=== PATIENT | male | born 1960 | race Caucasian/White ===

== ENCOUNTER 2016-07-09 09:20 | Emergency (ER) | payer SELFPAY ==
[~2016-07-09] VITALS: Ht 177.8 cm; Wt 79.4 kg
[~2016-07-09 09:20] MED LIST: ALBUTEROL0.09 MG/A2 INH; ANAPROX DS550 MG PO; ASPI-COR81 M1 PO; ATARAX25 MG PO; B12100 MC1 PO; BLOOD PRESSURE; CEPHALEXIN500 M1 PO; INDOMETHACIN50 MG PO; LIDEX 0.05% CRE15 GM T; MOTRIN800 MG PO; Motrin,Rufen800 MG PO; NAPROSYN250 MG PO; NKHM; NORCO 325 MG-51 TAB PO; PHENERGAN25 M1 PO; PREDNISONE10 MG PO; PREDNISONE20 MG PO; ROBITUSSIN DM120 ML PO; ULTRAM50 MG PO; VENTOLIN H0.09 MG/AC INH; VIBRAMYCIN100 MG PO
[2016-07-09 09:35] VITALS: BP 126/75
== END 2016-07-09 10:15 | disposition home or self-care (01) ==
LOC: ED 09:20
DX: S46.911A Strain of unspecified muscle, fascia and tendon at shoulder and upper arm level, right arm, initial encounter (principal); M17.10 Unilateral primary osteoarthritis, unspecified knee; F17.200 Nicotine dependence, unspecified, uncomplicated; Z87.11 Personal history of peptic ulcer disease; X58.XXXA Exposure to other specified factors, initial encounter; Y93.89 Activity, other specified; Y92.9 Unspecified place or not applicable; Y99.9 Unspecified external cause status

== ENCOUNTER 2016-12-08 09:56 | Emergency (ER) | payer SELFPAY ==
[~2016-12-08] VITALS: Ht 172.7 cm; Wt 81.6 kg
[2016-12-08 10:03] VITALS: BP 132/86
[2016-12-08] MEDS ORDERED: MEDROL DOSEPAK4 MG PO (11:01)
[2016-12-08] MEDS ORDERED: CYCLOBENZAPRINE10 MG PO (11:01)
[2016-12-08] MEDS ORDERED: NORCO 5-325 TA1 EACH PO (11:01)
[2016-12-08] MEDS ORDERED: NAPROSYN500 MG PO (11:01)
== END 2016-12-08 11:25 | disposition home or self-care (01) ==
LOC: ED 09:56
DX: S39.012A Strain of muscle, fascia and tendon of lower back, initial encounter (principal); M25.512 Pain in left shoulder; F17.200 Nicotine dependence, unspecified, uncomplicated; X50.0XXA Overexertion from strenuous movement or load, initial encounter; Y93.89 Activity, other specified; Y92.69 Other specified industrial and construction area as the place of occurrence of the external cause; Y99.0 Civilian activity done for income or pay

== ENCOUNTER 2016-12-31 19:28 | Emergency (ER) | payer SELFPAY ==
[~2016-12-31] VITALS: Ht 172.7 cm; Wt 83.9 kg
[~2016-12-31 19:28] MED LIST changes: +CYCLOBENZAPRINE10 MG PO; +MEDROL DOSEPAK4 MG PO; +NAPROSYN500 MG PO; +NORCO 5-325 TA1 EACH PO
[2016-12-31 19:33] VITALS: BP 160/91
== END 2016-12-31 21:11 | disposition home or self-care (01) ==
LOC: ED 19:28
DX: M20.011 Mallet finger of right finger(s) (principal); F17.200 Nicotine dependence, unspecified, uncomplicated

== ENCOUNTER 2017-04-09 17:15 | Emergency (ER) | payer SELFPAY ==
[~2017-04-09] VITALS: Ht 172.7 cm; Wt 81.6 kg
[2017-04-09 17:55] VITALS: BP 141/92
== END 2017-04-09 18:45 | disposition home or self-care (01) ==
LOC: ED 17:15
DX: S63.501A Unspecified sprain of right wrist, initial encounter (principal); X50.9XXA Other and unspecified overexertion or strenuous movements or postures, initial encounter; X50.0XXA Overexertion from strenuous movement or load, initial encounter; Y93.89 Activity, other specified; Y92.89 Other specified places as the place of occurrence of the external cause; Y99.8 Other external cause status; F17.200 Nicotine dependence, unspecified, uncomplicated

== ENCOUNTER 2017-06-02 01:34 | Emergency (ER) | payer SELFPAY ==
[~2017-06-02] VITALS: Ht 172.7 cm; Wt 83.9 kg
[2017-06-02 01:38] VITALS: BP 146/87
[2017-06-02] MEDS ORDERED: CYCLOBENZAPRINE5 M3 PO (02:35)
[2017-06-02] MEDS ORDERED: PREDNISONE20 M1 PO (02:35)
[2017-06-02] MEDS ORDERED: Orphenadrine C100 MG PO (02:35)
== END 2017-06-02 02:52 | disposition home or self-care (01) ==
LOC: ED 01:34
DX: S39.012A Strain of muscle, fascia and tendon of lower back, initial encounter (principal); F17.200 Nicotine dependence, unspecified, uncomplicated; M17.10 Unilateral primary osteoarthritis, unspecified knee; Z98.890 Other specified postprocedural states; Z87.11 Personal history of peptic ulcer disease; Z98.84 Bariatric surgery status; X50.1XXA Overexertion from prolonged static or awkward postures, initial encounter; Y93.89 Activity, other specified; Y92.89 Other specified places as the place of occurrence of the external cause; Y99.9 Unspecified external cause status

== ENCOUNTER 2017-08-11 16:41 | Emergency (ER) | payer SELFPAY ==
[~2017-08-11] VITALS: Ht 172.7 cm; Wt 83.9 kg
[~2017-08-11 16:41] MED LIST changes: +CYCLOBENZAPRINE5 M3 PO; +Orphenadrine C100 MG PO; +PREDNISONE20 M1 PO
[2017-08-11 16:59] VITALS: BP 131/80
[2017-08-11] MEDS ORDERED: NAPROSYN500 MG PO (17:47)
[2017-08-11] MEDS ORDERED: CYCLOBENZAPRINE10 MG PO ×2 (17:47→17:49)
== END 2017-08-11 23:25 | disposition home or self-care (01) ==
LOC: ED 16:41
DX: S39.012A Strain of muscle, fascia and tendon of lower back, initial encounter (principal); M17.10 Unilateral primary osteoarthritis, unspecified knee; F17.200 Nicotine dependence, unspecified, uncomplicated; Z98.890 Other specified postprocedural states; X50.1XXA Overexertion from prolonged static or awkward postures, initial encounter; Y93.89 Activity, other specified; Y92.69 Other specified industrial and construction area as the place of occurrence of the external cause; Y99.9 Unspecified external cause status

== ENCOUNTER 2017-09-21 10:46 | Emergency (ER) | payer SELFPAY ==
[~2017-09-21] VITALS: Wt 81.6 kg
[2017-09-21 10:47] VITALS: BP 128/84
[2017-09-21] MEDS ORDERED: PREDNISONE10 MG PO (10:54)
[2017-09-21] MEDS ORDERED: FLONASE ALLERG9.9 ML NAS (10:54)
[2017-09-21] MEDS ORDERED: CLARITIN10 MG PO (10:54)
[2017-09-21] MEDS ORDERED: ROBITUSSIN DM 105 ML PO (10:54)
== END 2017-09-21 11:54 | disposition home or self-care (01) ==
LOC: ED 10:46
DX: J20.9 Acute bronchitis, unspecified (principal); R03.0 Elevated blood-pressure reading, without diagnosis of hypertension; F17.200 Nicotine dependence, unspecified, uncomplicated; M17.10 Unilateral primary osteoarthritis, unspecified knee; Z98.890 Other specified postprocedural states; Z79.899 Other long term (current) drug therapy; Z87.11 Personal history of peptic ulcer disease

== ENCOUNTER 2017-10-06 12:37 | Emergency (ER) | payer SELFPAY ==
[~2017-10-06] VITALS: Ht 172.7 cm; Wt 79.4 kg
[~2017-10-06 12:37] MED LIST changes: +CLARITIN10 MG PO; +FLONASE ALLERG9.9 ML NAS; +ROBITUSSIN DM 105 ML PO
[2017-10-06 12:39] VITALS: BP 157/81
[2017-10-06] MEDS ORDERED: NAPROSYN500 MG PO (15:04)
== END 2017-10-06 15:04 | disposition home or self-care (01) ==
LOC: ED 12:37
DX: M77.9 Enthesopathy, unspecified (principal); F17.200 Nicotine dependence, unspecified, uncomplicated

== ENCOUNTER 2017-10-21 04:38 | Emergency (ER) | payer SELFPAY ==
[~2017-10-21] VITALS: Ht 170.1 cm; Wt 56.7 kg
[2017-10-21 04:39] VITALS: BP 130/57
[2017-10-21] MEDS ORDERED: IBU800 MG PO (04:53)
[2017-10-21] MEDS ORDERED: PREDNISONE50 MG PO (04:53)
== END 2017-10-21 05:07 | disposition home or self-care (01) ==
LOC: ED 04:38
DX: M79.89 Other specified soft tissue disorders (principal); M79.641 Pain in right hand; M79.642 Pain in left hand; F17.200 Nicotine dependence, unspecified, uncomplicated; M17.10 Unilateral primary osteoarthritis, unspecified knee; Z87.11 Personal history of peptic ulcer disease

== ENCOUNTER → 2017-11-04 | Outpatient (CLI) | payer SELFPAY ==
[~2017-11-04] MED LIST changes: +IBU800 MG PO; +PREDNISONE50 MG PO
== END | disposition home or self-care (01) ==
LOC: RESCLI 00:28
DX: I10 Essential (primary) hypertension (principal); F17.210 Nicotine dependence, cigarettes, uncomplicated; M79.89 Other specified soft tissue disorders; R06.09 Other forms of dyspnea; E66.3 Overweight; R00.1 Bradycardia, unspecified; Z71.6 Tobacco abuse counseling

== ENCOUNTER → 2017-11-10 | Outpatient (CLI) | payer SELFPAY | END | disposition home or self-care (01) | LOC: US 04:08 | DX: M79.89 Other specified soft tissue disorders (principal); R60.0 Localized edema; I10 Essential (primary) hypertension ==

== ENCOUNTER → 2017-11-11 | Outpatient (CLI) | payer SELFPAY | END | disposition home or self-care (01) | LOC: CARD 02:10 | DX: R00.1 Bradycardia, unspecified (principal); I10 Essential (primary) hypertension; R53.81 Other malaise; R06.09 Other forms of dyspnea; F17.200 Nicotine dependence, unspecified, uncomplicated ==

== ENCOUNTER → 2017-11-17 | Outpatient (CLI) | payer SELFPAY | END | disposition home or self-care (01) | LOC: LAB 03:53 → RESCLI 13:36 | DX: I10 Essential (primary) hypertension (principal) ==

== ENCOUNTER → 2017-11-30 | Outpatient (CLI) | payer SELFPAY ==
[2017-11-30 10:02] LABS: BASO # 0.1 10*3/uL (0.0-0.1); BASO % 0.8 % (0.0-1.0); EOS # 0.3 10*3/uL (0.0-0.4); EOS % 2.5 % (1.0-4.0); HEMATOCRIT 43.3 % (42.0-52.0); HEMOGLOBIN 13.8 g/dl (14.0-18.0); LYMPH # 2.3 10*3/uL (1.3-4.4); LYMPH % 23.4 % (27.0-41.0); MEAN CELL VOLUME 96.9 fl (80.0-94.0); MEAN CORPUSCULAR HGB 30.9 pg (27.0-31.0); MEAN CORPUSCULAR HGB CONC 31.9 g/dl (33.0-37.0); MEAN PLATELET VOLUME 11.1 fl (9.6-12.3); MONO # 0.7 10*3/uL (0.1-1.0); MONO % 6.6 % (3.0-9.0); NEUT # 6.6 10*3/uL (2.3-7.9); NEUT % 66.3 % (47.0-73.0); PLATELET COUNT AUTOMATED 265 10*3/uL (130-400); RED BLOOD COUNT 4.47 10*6/uL (4.50-5.90); RED CELL DISTRI WIDTH 14.4 % (0-14.5); WHITE BLOOD COUNT 9.9 10*3/uL (4.8-10.8)
[2017-11-30 10:32] LABS: BUN 25 mg/dl (7-24); CHLORIDE 105 mmol/L (98-107); CHOLESTEROL 166 mg/dL (<200); POTASSIUM 4.9 mmol/L (3.5-5.1); SODIUM 141 mmol/L (136-145); TRIGLYCERIDES 115 mg/dl (<150); VLDL CHOLESTEROL 23 mg/dL (6-40)
[2017-11-30 10:40] LABS: HDL CHOLESTEROL 39 mg/dl (40-60); LDL CHOLESTEROL 104 mg/dL (9-159)
== END | disposition home or self-care (01) ==
LOC: LAB 09:16
PROVIDERS: Internal Medicine
DX: I10 Essential (primary) hypertension (principal)

== ENCOUNTER → 2017-12-08 | Outpatient (CLI) | payer SELFPAY | END | disposition home or self-care (01) | LOC: CARD 00:31 → EDSTATUS 09:19 → CP 09:19 → CARD 10:13 → EDSTATUS 13:46 → CARD 12-12 03:34 | DX: R06.09 Other forms of dyspnea (principal); F17.200 Nicotine dependence, unspecified, uncomplicated ==

== ENCOUNTER 2017-12-27 17:54 | Emergency (ER) | payer SELFPAY ==
[~2017-12-27] VITALS: Ht 172.7 cm; Wt 79.4 kg
[2017-12-27 17:55] VITALS: BP 141/95
[2017-12-27] MEDS ORDERED: CYCLOBENZAPRINE5 M3 PO (18:45)
[2017-12-27] MEDS ORDERED: Motrin,Rufen800 MG PO (18:45)
== END 2017-12-27 18:56 | disposition home or self-care (01) ==
LOC: ED 17:54
DX: S39.012A Strain of muscle, fascia and tendon of lower back, initial encounter (principal); F17.200 Nicotine dependence, unspecified, uncomplicated; X50.1XXA Overexertion from prolonged static or awkward postures, initial encounter; Y93.89 Activity, other specified; Y92.89 Other specified places as the place of occurrence of the external cause; Y99.8 Other external cause status

== ENCOUNTER 2018-01-14 18:56 | Emergency (ER) | payer SELFPAY ==
[~2018-01-14] VITALS: Ht 172.7 cm; Wt 79.4 kg
[2018-01-14 18:59] VITALS: BP 137/91
[2018-01-14] MEDS ORDERED: INDOMETHACIN50 MG PO (20:14)
== END 2018-01-14 20:16 | disposition home or self-care (01) ==
LOC: ED 18:56
DX: M77.9 Enthesopathy, unspecified (principal); M25.532 Pain in left wrist; F17.200 Nicotine dependence, unspecified, uncomplicated; Z98.890 Other specified postprocedural states

== ENCOUNTER 2018-04-13 23:05 | Emergency (ER) | payer SELFPAY ==
[~2018-04-13] VITALS: Ht 172.7 cm; Wt 77.1 kg
[2018-04-13 23:07] VITALS: BP 154/94
[2018-04-13 23:32] LABS: BASO # 0.1 10*3/uL (0.0-0.1); BASO % 1.1 % (0.0-1.0); EOS # 0.3 10*3/uL (0.0-0.4); EOS % 4.3 % (1.0-4.0); HEMATOCRIT 42.3 % (42.0-52.0); HEMOGLOBIN 14.2 g/dl (14.0-18.0); LYMPH # 2.4 10*3/uL (1.3-4.4); LYMPH % 32.8 % (27.0-41.0); MEAN CORPUSCULAR HGB 31.6 pg (27.0-31.0); MEAN CORPUSCULAR HGB CONC 33.6 g/dl (33.0-37.0); MEAN PLATELET VOLUME 9.4 fl (9.6-12.3); MONO # 0.6 10*3/uL (0.1-1.0); MONO % 8.5 % (3.0-9.0); NEUT # 3.8 10*3/uL (2.3-7.9); PLATELET COUNT AUTOMATED 283 10*3/uL (130-400); RED CELL DISTRI WIDTH 13.7 % (0-14.5); WHITE BLOOD COUNT 7.2 10*3/uL (4.8-10.8)
[2018-04-13 23:42] LABS: ACT PARTIAL THROMBO TIME 29.8 SECONDS (20.8-31.5); INTERNATIONAL NORM RATIO 0.9 (2.0-3.5)
[2018-04-13 23:46] LABS: ALBUMIN 3.8 gm/dl (3.1-4.5); ALKALINE PHOSPHATASE 116 U/L (45-117); BUN 14 mg/dl (7-24); CHLORIDE 105 mmol/L (98-107); CREATININE 0.88 mg/dL (0.70-1.30); POTASSIUM 4.3 mmol/L (3.5-5.1); SGOT/AST 12 IU/L (3-35); SGPT/ALT 18 U/L (12-78); SODIUM 140 mmol/L (136-145); TOTAL PROTEIN 7.5 gm/dL (6.4-8.2)
== END 2018-04-14 01:02 | disposition home or self-care (01) ==
LOC: ED 23:05
PROVIDERS: Student in an Organized Health Care Education/Training Program
DX: K64.9 Unspecified hemorrhoids (principal); F17.200 Nicotine dependence, unspecified, uncomplicated; Z79.899 Other long term (current) drug therapy

== ENCOUNTER 2018-05-11 17:18 | Emergency (ER) | payer SELFPAY ==
[~2018-05-11] VITALS: Ht 172.7 cm; Wt 79.4 kg
[2018-05-11 17:19] VITALS: BP 134/98
[2018-05-11] MEDS ORDERED: TESSALON PERLE100 M1 PO (18:44)
[2018-05-11] MEDS ORDERED: PREDNISONE50 MG PO (18:44)
[2018-05-11] MEDS ORDERED: AMOXICILLIN500 M2 PO (18:44)
== END 2018-05-11 18:50 | disposition home or self-care (01) ==
LOC: ED 17:18
DX: J20.9 Acute bronchitis, unspecified (principal); F17.200 Nicotine dependence, unspecified, uncomplicated

== ENCOUNTER 2018-06-30 01:18 | Emergency (ER) | payer BC ==
[~2018-06-30] VITALS: Ht 172.7 cm; Wt 751.1 kg
[~2018-06-30 01:18] MED LIST changes: +AMOXICILLIN500 M2 PO; +AVPAK AZITHROM250 MG PO; +MUCINEX1200 M1 PO; +PROAIR HFA8.5 GM INH; +TESSALON PERLE100 M1 PO
[2018-06-30 01:20] VITALS: BP 144/96
== END 2018-06-30 01:45 | disposition home or self-care (01) ==
LOC: ED 01:18
DX: R11.2 Nausea with vomiting, unspecified (principal); F17.200 Nicotine dependence, unspecified, uncomplicated; Z79.2 Long term (current) use of antibiotics; Z79.899 Other long term (current) drug therapy

== ENCOUNTER 2018-11-02 12:39 | Emergency (ER) | payer BC ==
[~2018-11-02] VITALS: Ht 172.7 cm; Wt 79.4 kg
[2018-11-02 12:41] VITALS: BP 149/85
[2018-11-02] MEDS ORDERED: NAPROSYN500 MG PO (15:15)
[2018-11-02] MEDS ORDERED: PREDNISONE50 MG PO (15:15)
[2018-11-02] MEDS ORDERED: CYCLOBENZAPRINE10 MG PO (15:15)
== END 2018-11-02 15:15 | disposition home or self-care (01) ==
LOC: ED 12:39
DX: M62.830 Muscle spasm of back (principal); M54.5 Low back pain; F17.200 Nicotine dependence, unspecified, uncomplicated; Z79.899 Other long term (current) drug therapy; X50.0XXA Overexertion from strenuous movement or load, initial encounter; Y93.89 Activity, other specified; Y92.69 Other specified industrial and construction area as the place of occurrence of the external cause; Y99.8 Other external cause status

== ENCOUNTER 2018-12-20 14:54 | Emergency (ER) | payer BC ==
[~2018-12-20] VITALS: Ht 172.7 cm; Wt 79.4 kg
[2018-12-20 15:56] VITALS: BP 112/74
== END 2018-12-20 16:10 | disposition home or self-care (01) ==
LOC: ED 14:54
DX: G89.29 Other chronic pain (principal); M25.562 Pain in left knee; F17.200 Nicotine dependence, unspecified, uncomplicated; Z98.890 Other specified postprocedural states

== ENCOUNTER 2019-02-07 11:19 | Emergency (ER) | payer BC ==
[~2019-02-07] VITALS: Ht 172.7 cm; Wt 79.4 kg
[2019-02-07 11:22] VITALS: BP 143/99
[2019-02-07 11:36] LABS: BASO # 0.1 10*3/uL (0.0-0.1); BASO % 1.2 % (0.0-1.0); EOS # 0.3 10*3/uL (0.0-0.4); EOS % 3.2 % (1.0-4.0); HEMATOCRIT 45.1 % (42.0-52.0); HEMOGLOBIN 14.8 g/dl (14.0-18.0); LYMPH # 1.7 10*3/uL (1.3-4.4); MEAN CELL VOLUME 99.1 fl (80.0-94.0); MEAN CORPUSCULAR HGB 32.5 pg (27.0-31.0); MEAN CORPUSCULAR HGB CONC 32.8 g/dl (33.0-37.0); MEAN PLATELET VOLUME 9.2 fl (9.6-12.3); MONO # 0.6 10*3/uL (0.1-1.0); NEUT % 65.2 % (47.0-73.0); PLATELET COUNT AUTOMATED 275 10*3/uL (130-400); RED BLOOD COUNT 4.55 10*6/uL (4.50-5.90); RED CELL DISTRI WIDTH 14.1 % (0-14.5); WHITE BLOOD COUNT 7.7 10*3/uL (4.8-10.8)
[2019-02-07 11:53] LABS: ALBUMIN 4.2 gm/dl (3.1-4.5); ALKALINE PHOSPHATASE 104 U/L (45-117); BUN 20 mg/dl (7-24); CHLORIDE 108 mmol/L (98-107); CREATININE 1.01 mg/dL (0.70-1.30); LIPASE 151 U/L (73-393); POTASSIUM 4.6 mmol/L (3.5-5.1); SGOT/AST 17 IU/L (3-35); SGPT/ALT 20 U/L (12-78); SODIUM 144 mmol/L (136-145); TOTAL PROTEIN 7.9 gm/dL (6.4-8.2)
[2019-02-07 11:57] LABS: BILIRUBIN NEGATIVE (NEGATIVE); BLOOD TRACE-LYSED (NEGATIVE); CLARITY CLEAR (CLEAR); COLOR YELLOW (YELLOW); GLUCOSE NEGATIVE (NEGATIVE); KETONE NEGATIVE (NEGATIVE); LEUKO ESTERASE NEGATIVE (NEGATIVE); NITRITE NEGATIVE (NEGATIVE); SPECIFIC GRAVITY <= 1.005 (1.005-1.030); UROBILINOGEN 0.2 E.U./dl (0.2-1.0)
[2019-02-07 12:07] LABS: EPITHELIAL CELLS 0-2; WBC 0-2 wbc/hpf (0-5)
[2019-02-07] MEDS ORDERED: ZOFRAN4 MG PO (12:09)
== END 2019-02-07 12:30 | disposition home or self-care (01) ==
LOC: ED 11:19
PROVIDERS: Nurse Practitioner Family
DX: R11.2 Nausea with vomiting, unspecified (principal); R10.84 Generalized abdominal pain; F17.200 Nicotine dependence, unspecified, uncomplicated

== ENCOUNTER 2019-02-24 12:07 | Emergency (ER) | payer BC ==
[~2019-02-24] VITALS: Ht 172.7 cm; Wt 79.4 kg
--- NOTE | ~2019-02-24 | EKG ---
[place], [place] ELECTROCARDIOGRAM REPORT NAME: FELIZ QUAN UNIT #: [id number] ROOM: DOCTOR: EPIPHANY DRAFT REPORT BIRTHDATE: [birth year] [facility] Test Date: 2019-02-24 Test Time: 15:02:32 Pat Name: FELIZ QUAN Department: Room: Gender: Stamper Blocker: CASIMIRO : 1960 Requested By: REBEKAH AVERY Order Number: [id number] Reading MD: Jonh Gee MD Measurements Intervals [place] Rate: 47 P: 4 PA: 146 QRS: 8 QRSD: 81 T: 14 QT: 440 QTc: 389 Interpretive Statements Sinus bradycardia Low voltage, precordial leads Electronically Signed On 02-28-2019 9:50:16 PDT by Jonh Gee MD CM:EKGRPT:ELECTROCARDIOGRAM REPORT [id number] REBEKAH SEGUNDO DRAFT REPORT REBEKAH AVERY DO
--- NOTE | ~2019-02-24 | EKG ---
[place], [place] ELECTROCARDIOGRAM REPORT NAME: FELIZ QUAN UNIT #: [id number] ROOM: DOCTOR: EPIPHANY DRAFT REPORT BIRTHDATE: [birth year] [facility] Test Date: 2019-02-24 Test Time: 12:15:43 Pat Name: FELIZ QUAN Department: Room: Gender: Rubber Mill Tender: Geremias Eckert : 1960 Requested By: REBEKAH AVERY Order Number: [id number] Reading MD: Jonh Gee MD Measurements Intervals [place] Rate: 82 P: 4 MS: 140 QRS: 8 QRSD: 86 T: 4 QT: 383 QTc: 448 Interpretive Statements Sinus rhythm Nonspecific ST T changes Electronically Signed On 02-28-2019 9:49:30 PDT by Jonh Gee MD CM:EKGRPT:ELECTROCARDIOGRAM REPORT 1215 [id number] REBEKAH SEGUNDO DRAFT REPORT REBEKAH AVERY DO
[~2019-02-24 12:07] MED LIST changes: +ZOFRAN4 MG PO
[2019-02-24 12:31] LABS: BASO # 0.1 10*3/uL (0.0-0.1); BASO % 1.3 % (0.0-1.0); EOS # 0.3 10*3/uL (0.0-0.4); EOS % 3.6 % (1.0-4.0); HEMATOCRIT 43.2 % (42.0-52.0); HEMOGLOBIN 14.1 g/dl (14.0-18.0); LYMPH # 1.9 10*3/uL (1.3-4.4); LYMPH % 27.4 % (27.0-41.0); MEAN CELL VOLUME 99.5 fl (80.0-94.0); MEAN CORPUSCULAR HGB 32.5 pg (27.0-31.0); MEAN CORPUSCULAR HGB CONC 32.6 g/dl (33.0-37.0); MEAN PLATELET VOLUME 9.1 fl (9.6-12.3); MONO # 0.5 10*3/uL (0.1-1.0); NEUT # 4.3 10*3/uL (2.3-7.9); NEUT % 60.4 % (47.0-73.0); PLATELET COUNT AUTOMATED 254 10*3/uL (130-400); RED BLOOD COUNT 4.34 10*6/uL (4.50-5.90); RED CELL DISTRI WIDTH 14.1 % (0-14.5)
[2019-02-24 12:46] LABS: BUN 22 mg/dl (7-24); CHLORIDE 107 mmol/L (98-107); CREATININE 0.98 mg/dL (0.70-1.30); POTASSIUM 4.3 mmol/L (3.5-5.1); SGOT/AST 12 IU/L (3-35); SGPT/ALT 19 U/L (12-78); SODIUM 141 mmol/L (136-145); TOTAL PROTEIN 7.5 gm/dL (6.4-8.2)
[2019-02-24 12:49] LABS: ALKALINE PHOSPHATASE 95 U/L (45-117)
[2019-02-24 12:50] LABS: TROPONIN I < 0.015 ng/ml (<0.045)
[2019-02-24 12:51] LABS: ACT PARTIAL THROMBO TIME 30.1 SECONDS (20.0-32.1); INTERNATIONAL NORM RATIO 0.9 (2.0-3.5)
[2019-02-24 13:12] VITALS: BP 138/88
[2019-02-24 13:38] LABS: LIPASE 145 U/L (73-393)
[2019-02-24] MEDS ORDERED: PHENERGAN25 M3 PO (14:54)
== END 2019-02-24 14:58 | disposition home or self-care (01) ==
LOC: ED 12:07
PROVIDERS: Emergency Medicine
DX: R11.2 Nausea with vomiting, unspecified (principal); M17.10 Unilateral primary osteoarthritis, unspecified knee; R79.1 Abnormal coagulation profile; F17.200 Nicotine dependence, unspecified, uncomplicated

== ENCOUNTER 2019-03-21 02:44 | Emergency (ER) | payer BC ==
[~2019-03-21] VITALS: Ht 172.7 cm; Wt 79.4 kg
[2019-03-21 02:44] VITALS: BP 147/85
[~2019-03-21 02:44] MED LIST changes: +PHENERGAN25 M3 PO
[2019-03-21] MEDS ORDERED: CYCLOBENZAPRINE10 MG PO (04:02)
[2019-03-21] MEDS ORDERED: MEDROL DOSEPAK4 MG PO (04:02)
[2019-03-21] MEDS ORDERED: NAPROXEN375 MG PO (04:02)
== END 2019-03-21 04:20 | disposition home or self-care (01) ==
LOC: ED 02:44
DX: M51.36 Other intervertebral disc degeneration, lumbar region (principal); M17.10 Unilateral primary osteoarthritis, unspecified knee; I10 Essential (primary) hypertension; F17.200 Nicotine dependence, unspecified, uncomplicated

== ENCOUNTER 2019-05-22 13:31 | Emergency (ER) | payer BC ==
[~2019-05-22] VITALS: Ht 172.7 cm; Wt 79.4 kg
[2019-05-22 13:31] VITALS: BP 131/74
[~2019-05-22 13:31] MED LIST changes: +NAPROXEN375 MG PO
[2019-05-22 14:18] LABS: BASO # 0.1 10*3/uL (0.0-0.1); BASO % 0.6 % (0.0-1.0); EOS # 0.1 10*3/uL (0.0-0.4); EOS % 1.6 % (1.0-4.0); HEMATOCRIT 41.6 % (42.0-52.0); HEMOGLOBIN 13.8 g/dl (14.0-18.0); LYMPH # 0.8 10*3/uL (1.3-4.4); LYMPH % 9.7 % (27.0-41.0); MEAN CELL VOLUME 97.9 fl (80.0-94.0); MEAN CORPUSCULAR HGB 32.5 pg (27.0-31.0); MEAN CORPUSCULAR HGB CONC 33.2 g/dl (33.0-37.0); MEAN PLATELET VOLUME 8.9 fl (9.6-12.3); MONO # 0.5 10*3/uL (0.1-1.0); MONO % 6.1 % (3.0-9.0); NEUT # 6.7 10*3/uL (2.3-7.9); NEUT % 81.8 % (47.0-73.0); PLATELET COUNT AUTOMATED 252 10*3/uL (130-400); RED BLOOD COUNT 4.25 10*6/uL (4.50-5.90); WHITE BLOOD COUNT 8.2 10*3/uL (4.8-10.8)
[2019-05-22 14:29] LABS: INTERNATIONAL NORM RATIO 0.9 (2.0-3.5)
[2019-05-22 14:34] LABS: ALBUMIN 3.7 gm/dl (3.1-4.5); ALKALINE PHOSPHATASE 97 U/L (45-117); BUN 19 mg/dl (7-24); CHLORIDE 108 mmol/L (98-107); CREATININE 0.89 mg/dL (0.70-1.30); LIPASE 83 U/L (73-393); POTASSIUM 4.3 mmol/L (3.5-5.1); SGOT/AST 12 IU/L (3-35); SGPT/ALT 20 U/L (12-78); SODIUM 141 mmol/L (136-145); TOTAL PROTEIN 7.1 gm/dL (6.4-8.2); TROPONIN I < 0.015 ng/ml (<0.045)
[2019-05-22] MEDS ORDERED: ZOFRAN4 MG PO (14:46)
== END 2019-05-22 14:48 | disposition home or self-care (01) ==
LOC: ED 13:31
PROVIDERS: Emergency Medicine
DX: K29.70 Gastritis, unspecified, without bleeding (principal); R11.2 Nausea with vomiting, unspecified; I10 Essential (primary) hypertension; F17.200 Nicotine dependence, unspecified, uncomplicated; Z87.11 Personal history of peptic ulcer disease

== ENCOUNTER 2019-07-10 17:12 | Emergency (ER) | payer BC ==
[~2019-07-10] VITALS: Ht 172.7 cm; Wt 77.1 kg
[2019-07-10 17:22] VITALS: BP 122/67
[2019-07-10] MEDS ORDERED: AMOXICILLIN500 M2 PO (18:37)
[2019-07-10] MEDS ORDERED: ROBITUSSIN DM 105 ML PO (18:37)
[2019-07-10] MEDS ORDERED: PREDNISONE50 MG PO (18:37)
== END 2019-07-10 18:45 | disposition home or self-care (01) ==
LOC: ED 17:12
DX: J20.9 Acute bronchitis, unspecified (principal); I10 Essential (primary) hypertension; F17.200 Nicotine dependence, unspecified, uncomplicated; Z79.899 Other long term (current) drug therapy

== ENCOUNTER 2019-08-01 18:08 | Emergency (ER) | payer BC ==
[~2019-08-01] VITALS: Ht 172.7 cm; Wt 79.4 kg
[2019-08-01 18:51] LABS: BASO # 0.1 10*3/uL (0.0-0.1); BASO % 1.3 % (0.0-1.0); EOS # 0.2 10*3/uL (0.0-0.4); EOS % 3.1 % (1.0-4.0); HEMOGLOBIN 14.6 g/dl (14.0-18.0); LYMPH # 1.8 10*3/uL (1.3-4.4); LYMPH % 23.6 % (27.0-41.0); MEAN CELL VOLUME 99.6 fl (80.0-94.0); MEAN CORPUSCULAR HGB 32.3 pg (27.0-31.0); MEAN CORPUSCULAR HGB CONC 32.4 g/dl (33.0-37.0); MEAN PLATELET VOLUME 9.5 fl (9.6-12.3); MONO # 0.5 10*3/uL (0.1-1.0); MONO % 6.8 % (3.0-9.0); NEUT % 64.8 % (47.0-73.0); PLATELET COUNT AUTOMATED 296 10*3/uL (130-400); RED BLOOD COUNT 4.52 10*6/uL (4.50-5.90); RED CELL DISTRI WIDTH 14.3 % (0-14.5); WHITE BLOOD COUNT 7.7 10*3/uL (4.8-10.8)
[2019-08-01 19:03] LABS: ACT PARTIAL THROMBO TIME 31.3 SECONDS (20.0-32.1); INTERNATIONAL NORM RATIO 0.9 (2.0-3.5)
[2019-08-01 19:08] LABS: ALBUMIN 4.1 gm/dl (3.1-4.5); ALKALINE PHOSPHATASE 116 U/L (45-117); BUN 21 mg/dl (7-24); CHLORIDE 108 mmol/L (98-107); CREATININE 1.07 mg/dL (0.70-1.30); POTASSIUM 4.7 mmol/L (3.5-5.1); SGOT/AST 12 IU/L (3-35); SGPT/ALT 20 U/L (12-78); SODIUM 141 mmol/L (136-145); TOTAL PROTEIN 7.8 gm/dL (6.4-8.2)
[2019-08-01 19:12] LABS: TROPONIN I < 0.015 ng/ml (<0.045)
[2019-08-01 20:06] VITALS: BP 112/74
[2019-08-01] MEDS ORDERED: ZITHROMAX250 MG PO (20:25)
== END 2019-08-01 21:00 | disposition home or self-care (01) ==
LOC: ED 18:08
PROVIDERS: Emergency Medicine
DX: J40 Bronchitis, not specified as acute or chronic (principal); I10 Essential (primary) hypertension; F17.200 Nicotine dependence, unspecified, uncomplicated; Z79.2 Long term (current) use of antibiotics; Z79.899 Other long term (current) drug therapy

== ENCOUNTER 2019-10-28 11:53 | Emergency (ER) | payer SELFPAY ==
[~2019-10-28] VITALS: Ht 172.7 cm; Wt 79.4 kg
[~2019-10-28 11:53] MED LIST changes: +ZITHROMAX250 MG PO
[2019-10-28 12:03] VITALS: BP 126/91
[2019-10-28] MEDS ORDERED: CEPHALEXIN500 M1 PO (13:25)
== END 2019-10-28 14:02 | disposition home or self-care (01) ==
LOC: ED 11:53
DX: L03.113 Cellulitis of right upper limb (principal); I10 Essential (primary) hypertension; Z79.899 Other long term (current) drug therapy; Z79.2 Long term (current) use of antibiotics; Z98.890 Other specified postprocedural states; Z87.891 Personal history of nicotine dependence

== ENCOUNTER 2019-11-30 12:13 | Emergency (ER) | payer SELFPAY ==
[~2019-11-30] VITALS: Ht 172.7 cm; Wt 79.4 kg
[2019-11-30 12:21] VITALS: BP 139/91
[2019-11-30 14:00] LABS: CLARITY CLEAR (CLEAR); COLOR YELLOW (YELLOW)
[2019-11-30 14:01] LABS: BILIRUBIN 1+ (NEGATIVE); BLOOD 1+ (NEGATIVE); GLUCOSE NEGATIVE (NEGATIVE); KETONE NEGATIVE (NEGATIVE); LEUKO ESTERASE NEGATIVE (NEGATIVE); NITRITE NEGATIVE (NEGATIVE); SPECIFIC GRAVITY 1.025 (1.005-1.030); UROBILINOGEN 0.2 E.U./dl (0.2-1.0)
[2019-11-30 14:07] LABS: BACTERIA TRACE; MUCOUS 1+; WBC 0-2 wbc/hpf (0-5)
[2019-11-30] MEDS ORDERED: IBU800 M1 PO (15:53)
[2019-11-30] MEDS ORDERED: Motrin,Rufen800 MG PO (16:04)
[2019-11-30] MEDS ORDERED: CYCLOBENZAPRINE10 MG PO (16:04)
== END 2019-11-30 15:58 | disposition home or self-care (01) ==
LOC: ED 12:13
PROVIDERS: Family Medicine
DX: M62.830 Muscle spasm of back (principal); M47.816 Spondylosis without myelopathy or radiculopathy, lumbar region; I10 Essential (primary) hypertension; F17.200 Nicotine dependence, unspecified, uncomplicated

== ENCOUNTER 2019-12-26 13:35 | Emergency (ER) | payer SELFPAY ==
[~2019-12-26] VITALS: Ht 172.7 cm; Wt 79.4 kg
[~2019-12-26 13:35] MED LIST changes: +IBU800 M1 PO
[2019-12-26] MEDS ORDERED: CYCLOBENZAPRINE10 MG PO (14:31)
[2019-12-26] MEDS ORDERED: PREDNISONE50 MG PO (14:31)
== END 2019-12-26 14:43 | disposition home or self-care (01) ==
LOC: ED 13:35
DX: S39.012A Strain of muscle, fascia and tendon of lower back, initial encounter (principal); I10 Essential (primary) hypertension; F17.200 Nicotine dependence, unspecified, uncomplicated; Z79.899 Other long term (current) drug therapy; X58.XXXA Exposure to other specified factors, initial encounter; Y93.89 Activity, other specified; Y92.89 Other specified places as the place of occurrence of the external cause; Y99.8 Other external cause status

== ENCOUNTER 2020-04-24 10:18 | Emergency (ER) | payer BC ==
[~2020-04-24] VITALS: Ht 162.5 cm; Wt 83.9 kg
[2020-04-24 11:26] VITALS: BP 152/90
[2020-04-24 12:09] LABS: BASO # 0.1 10*3/uL (0.0-0.1); EOS # 0.2 10*3/uL (0.0-0.4); EOS % 3.4 % (1.0-4.0); HEMATOCRIT 41.2 % (42.0-52.0); LYMPH # 1.7 10*3/uL (1.3-4.4); MEAN CORPUSCULAR HGB 30.8 pg (27.0-31.0); MEAN PLATELET VOLUME 9.4 fl (9.6-12.3); MONO # 0.4 10*3/uL (0.1-1.0); MONO % 7.2 % (3.0-9.0); NEUT # 3.6 10*3/uL (2.3-7.9); NEUT % 60.1 % (47.0-73.0); PLATELET COUNT AUTOMATED 276 10*3/uL (130-400); RED BLOOD COUNT 4.29 10*6/uL (4.50-5.90); RED CELL DISTRI WIDTH 14.4 % (0-14.5)
[2020-04-24 12:19] LABS: ACT PARTIAL THROMBO TIME 32.1 SECONDS (20.0-32.1); INTERNATIONAL NORM RATIO 0.9 (2.0-3.5)
[2020-04-24 12:25] LABS: ALBUMIN 3.6 gm/dl (3.1-4.5); ALKALINE PHOSPHATASE 116 U/L (45-117); BUN 15 mg/dl (7-24); CHLORIDE 110 mmol/L (98-107); CREATININE 0.86 mg/dL (0.70-1.30); LIPASE 118 U/L (73-393); POTASSIUM 4.3 mmol/L (3.5-5.1); SGOT/AST 16 IU/L (3-35); SGPT/ALT 15 U/L (12-78); SODIUM 143 mmol/L (136-145); TOTAL PROTEIN 7.4 gm/dL (6.4-8.2)
[2020-04-24 12:29] LABS: TROPONIN I < 0.015 ng/ml (<0.045)
== END 2020-04-24 14:29 | disposition left against medical advice (07) ==
LOC: ED 10:18
PROVIDERS: Emergency Medicine
DX: I20.8 Other forms of angina pectoris (principal); I10 Essential (primary) hypertension; Z79.899 Other long term (current) drug therapy

== ENCOUNTER 2020-06-19 01:35 | Emergency (ER) | payer BC ==
[~2020-06-19] VITALS: Ht 172.7 cm; Wt 81.6 kg
[2020-06-19 01:51] VITALS: BP 128/79
[2020-06-19] MEDS ORDERED: PREDNISONE20 M1 PO (04:08)
[2020-06-19] MEDS ORDERED: NORCO 5-325 TA1 EACH PO (04:08)
== END 2020-06-19 05:02 | disposition home or self-care (01) ==
LOC: ED 01:35
DX: G58.8 Other specified mononeuropathies (principal); F17.200 Nicotine dependence, unspecified, uncomplicated

== ENCOUNTER 2020-10-29 11:34 | Emergency (ER) | payer BC ==
[~2020-10-29] VITALS: Ht 172.7 cm; Wt 83.9 kg
[2020-10-29 11:38] VITALS: BP 019/84
== END 2020-10-29 13:10 | disposition home or self-care (01) ==
LOC: ED 11:34
DX: S52.515A Nondisplaced fracture of left radial styloid process, initial encounter for closed fracture (principal); F17.200 Nicotine dependence, unspecified, uncomplicated; Z79.899 Other long term (current) drug therapy; Z79.2 Long term (current) use of antibiotics; Z98.890 Other specified postprocedural states; Z98.84 Bariatric surgery status; X50.9XXA Other and unspecified overexertion or strenuous movements or postures, initial encounter; Y93.H2 Activity, gardening and landscaping; Y92.096 Garden or yard of other non-institutional residence as the place of occurrence of the external cause; Y99.8 Other external cause status

== ENCOUNTER → 2020-11-22 | Outpatient (CLI) | payer BC | END | disposition home or self-care (01) | LOC: RESCLI 00:21 | PROVIDERS: ATTEND Internal Medicine | DX: S52.502D Unspecified fracture of the lower end of left radius, subsequent encounter for closed fracture with routine healing (principal); M25.532 Pain in left wrist; F17.200 Nicotine dependence, unspecified, uncomplicated; Z79.82 Long term (current) use of aspirin; Z79.899 Other long term (current) drug therapy; Z98.890 Other specified postprocedural states; X58.XXXD Exposure to other specified factors, subsequent encounter ==

== ENCOUNTER → 2020-11-23 | Outpatient (CLI) | payer BC | END | disposition home or self-care (01) | LOC: RAD 08:36 | PROVIDERS: ATTEND Orthopaedic Surgery | DX: R22.42 Localized swelling, mass and lump, left lower limb (principal); M25.532 Pain in left wrist ==

== ENCOUNTER 2021-02-11 10:27 | Emergency (ER) | payer BC ==
[~2021-02-11] VITALS: Ht 172.7 cm; Wt 83.9 kg
[2021-02-11 10:32] VITALS: BP 125/74
[2021-02-11] MEDS ORDERED: ZOFRAN4 MG PO (12:01)
== END 2021-02-11 12:01 | disposition home or self-care (01) ==
LOC: ED 10:27
DX: R11.2 Nausea with vomiting, unspecified (principal); R19.7 Diarrhea, unspecified; K30 Functional dyspepsia; F17.200 Nicotine dependence, unspecified, uncomplicated; Z79.899 Other long term (current) drug therapy; Z79.2 Long term (current) use of antibiotics; Z98.84 Bariatric surgery status; Z98.890 Other specified postprocedural states

== ENCOUNTER 2021-03-19 14:10 | Emergency (ER) | payer BC ==
[~2021-03-19] VITALS: Ht 172.7 cm; Wt 77.6 kg
[2021-03-19 14:55] VITALS: BP 150/84
[2021-03-19 15:17] LABS: BASO # 0.1 10*3/uL (0.0-0.1); BASO % 0.7 % (0.0-1.0); EOS # 0.2 10*3/uL (0.0-0.4); EOS % 2.9 % (1.0-4.0); HEMATOCRIT 40.1 % (42.0-52.0); LYMPH # 1.7 10*3/uL (1.3-4.4); LYMPH % 24.2 % (27.0-41.0); MEAN CELL VOLUME 95.9 fl (80.0-94.0); MEAN CORPUSCULAR HGB 30.9 pg (27.0-31.0); MEAN CORPUSCULAR HGB CONC 32.2 g/dl (33.0-37.0); MEAN PLATELET VOLUME 9.6 fl (9.6-12.3); MONO # 0.5 10*3/uL (0.1-1.0); MONO % 7.2 % (3.0-9.0); NEUT # 4.5 10*3/uL (2.3-7.9); NEUT % 64.7 % (47.0-73.0); PLATELET COUNT AUTOMATED 250 10*3/uL (130-400); RED BLOOD COUNT 4.18 10*6/uL (4.50-5.90); RED CELL DISTRI WIDTH 14.6 % (0-14.5); WHITE BLOOD COUNT 6.9 10*3/uL (4.8-10.8)
[2021-03-19 15:33] LABS: ALBUMIN 3.3 gm/dl (3.1-4.5); ALKALINE PHOSPHATASE 114 U/L (45-117); BUN 16 mg/dl (7-24); CHLORIDE 110 mmol/L (98-107); CREATININE 0.88 mg/dL (0.70-1.30); POTASSIUM 3.8 mmol/L (3.5-5.1); SGOT/AST 12 IU/L (3-35); SGPT/ALT 16 U/L (12-78); SODIUM 144 mmol/L (136-145); TOTAL PROTEIN 6.8 gm/dL (6.4-8.2)
[2021-03-19] MEDS ORDERED: ZOFRAN4 MG PO (15:40)
== END 2021-03-19 15:47 | disposition home or self-care (01) ==
LOC: ED 14:10
PROVIDERS: Student in an Organized Health Care Education/Training Program
DX: R11.2 Nausea with vomiting, unspecified (principal)

== ENCOUNTER 2021-03-25 10:14 | Emergency (ER) | payer BC ==
[~2021-03-25] VITALS: Ht 172.7 cm; Wt 77.6 kg
[2021-03-25 10:19] VITALS: BP 142/83
[2021-03-25] MEDS ORDERED: IBUPROFEN600 MG PO (13:42)
[2021-03-25] MEDS ORDERED: METHOCARBAMOL500 M1 PO (13:42)
== END 2021-03-25 14:14 | disposition home or self-care (01) ==
LOC: ED 10:14
DX: S33.5XXA Sprain of ligaments of lumbar spine, initial encounter (principal); F17.200 Nicotine dependence, unspecified, uncomplicated; Z98.84 Bariatric surgery status; Z98.890 Other specified postprocedural states; X50.9XXA Other and unspecified overexertion or strenuous movements or postures, initial encounter; Y93.I9 Activity, other involving external motion; Y92.89 Other specified places as the place of occurrence of the external cause; Y99.8 Other external cause status

== ENCOUNTER 2021-08-16 14:11 | Emergency (ER) | payer BC ==
[~2021-08-16] VITALS: Wt 74.8 kg
[~2021-08-16 14:11] MED LIST changes: +IBUPROFEN600 MG PO; +METHOCARBAMOL500 M1 PO
[2021-08-16 14:20] VITALS: BP 127/84
[2021-08-16] MEDS ORDERED: VOLTAREN ARTHRI20 GM T (15:43)
== END 2021-08-16 15:47 | disposition home or self-care (01) ==
LOC: ED 14:11
DX: S86.912A Strain of unspecified muscle(s) and tendon(s) at lower leg level, left leg, initial encounter (principal); M25.462 Effusion, left knee; M17.12 Unilateral primary osteoarthritis, left knee; Z87.891 Personal history of nicotine dependence; X50.1XXA Overexertion from prolonged static or awkward postures, initial encounter; Y93.89 Activity, other specified; Y92.89 Other specified places as the place of occurrence of the external cause; Y99.0 Civilian activity done for income or pay

== ENCOUNTER 2021-09-11 17:47 | Emergency (ER) | payer BC ==
[~2021-09-11] VITALS: Ht 172.7 cm; Wt 74.8 kg
[~2021-09-11 17:47] MED LIST changes: +VOLTAREN ARTHRI20 GM T
[2021-09-11 18:22] VITALS: BP 138/72
[2021-09-11] MEDS ORDERED: ONDANSETRON HYDR4 M1 PO (21:19)
== END 2021-09-11 21:21 | disposition home or self-care (01) ==
LOC: ED 17:47
DX: R11.2 Nausea with vomiting, unspecified (principal); F17.200 Nicotine dependence, unspecified, uncomplicated; Z79.899 Other long term (current) drug therapy; Z98.84 Bariatric surgery status

== ENCOUNTER 2021-10-04 16:04 | Emergency (ER) | payer BC ==
[~2021-10-04] VITALS: Ht 172.7 cm; Wt 74.8 kg
[~2021-10-04 16:04] MED LIST changes: +ONDANSETRON HYDR4 M1 PO
[2021-10-04 16:55] VITALS: BP 136/88
== END 2021-10-04 19:05 | disposition home or self-care (01) ==
LOC: ED 16:04
DX: R07.81 Pleurodynia (principal); Z87.891 Personal history of nicotine dependence

== ENCOUNTER 2021-10-08 18:07 | Emergency (ER) | payer BC ==
[~2021-10-08] VITALS: Wt 74.8 kg
[2021-10-08 18:18] VITALS: BP 142/87
== END 2021-10-08 20:22 | disposition home or self-care (01) ==
LOC: ED 18:07
DX: S22.31XA Fracture of one rib, right side, initial encounter for closed fracture (principal); Z98.890 Other specified postprocedural states; Z87.891 Personal history of nicotine dependence; X58.XXXA Exposure to other specified factors, initial encounter; Y93.89 Activity, other specified; Y92.89 Other specified places as the place of occurrence of the external cause; Y99.8 Other external cause status

== ENCOUNTER 2022-02-06 11:18 | Emergency (ER) | payer BC ==
[~2022-02-06] VITALS: Wt 74.8 kg
[2022-02-06 11:21] VITALS: BP 139/90
[2022-02-06] MEDS ORDERED: ONDANSETRON4 MG SL (11:46)
== END 2022-02-06 11:57 | disposition home or self-care (01) ==
LOC: ED 11:18
DX: R11.2 Nausea with vomiting, unspecified (principal); F17.200 Nicotine dependence, unspecified, uncomplicated

== ENCOUNTER 2022-03-04 11:36 | Emergency (ER) | payer BC ==
[~2022-03-04] VITALS: Ht 172.7 cm; Wt 74.8 kg
[~2022-03-04 11:36] MED LIST changes: +ONDANSETRON4 MG SL
[2022-03-04 11:51] VITALS: BP 133/83
== END 2022-03-04 12:19 | disposition home or self-care (01) ==
LOC: ED 11:36
DX: Z13.89 Encounter for screening for other disorder (principal)

== ENCOUNTER 2022-03-18 11:31 | Emergency (ER) | payer BC ==
[2022-03-18 11:54] VITALS: BP 126/77
[2022-03-18] MEDS ORDERED: PREDNISONE50 MG PO (15:32)
[2022-03-18] MEDS ORDERED: CYCLOBENZAPRINE10 MG PO (15:32)
== END 2022-03-18 15:46 | disposition home or self-care (01) ==
LOC: ED 11:31
DX: S39.012A Strain of muscle, fascia and tendon of lower back, initial encounter (principal); Z98.890 Other specified postprocedural states; X50.0XXA Overexertion from strenuous movement or load, initial encounter; Y93.89 Activity, other specified; Y92.69 Other specified industrial and construction area as the place of occurrence of the external cause; Y99.9 Unspecified external cause status

== ENCOUNTER 2022-04-10 14:53 | Emergency (ER) | payer BC ==
[~2022-04-10] VITALS: Ht 172.7 cm; Wt 74.8 kg
[2022-04-10 15:24] VITALS: BP 142/84
== END 2022-04-10 17:46 | disposition left against medical advice (07) ==
LOC: ED 14:53
DX: M54.50 Low back pain, unspecified (principal); Z98.890 Other specified postprocedural states

== ENCOUNTER 2022-07-24 07:51 | Emergency (ER) | payer BC ==
[~2022-07-24] VITALS: Ht 167.6 cm; Wt 79.4 kg
[2022-07-24 07:58] VITALS: BP 134/76
[2022-07-24] MEDS ORDERED: IBU800 M2 PO (08:10)
== END 2022-07-24 09:01 | disposition home or self-care (01) ==
LOC: ED 07:51
DX: M75.102 Unspecified rotator cuff tear or rupture of left shoulder, not specified as traumatic (principal); Z87.891 Personal history of nicotine dependence

== ENCOUNTER 2022-09-02 13:28 | Emergency (ER) | payer BC ==
[~2022-09-02] VITALS: Ht 167.6 cm; Wt 79.4 kg
[~2022-09-02 13:28] MED LIST changes: +IBU800 M2 PO
[2022-09-02 14:35] VITALS: BP 139/83
[2022-09-02] MEDS ORDERED: ONDANSETRON4 MG SL (15:45)
== END 2022-09-02 16:05 | disposition home or self-care (01) ==
LOC: ED 13:28
DX: R11.2 Nausea with vomiting, unspecified (principal); I10 Essential (primary) hypertension; Z98.890 Other specified postprocedural states; F17.200 Nicotine dependence, unspecified, uncomplicated

== ENCOUNTER 2022-09-15 10:21 | Emergency (ER) | payer BC ==
[~2022-09-15] VITALS: Ht 167.6 cm; Wt 79.4 kg
[2022-09-15 10:37] VITALS: BP 135/86
[2022-09-15] MEDS ORDERED: ZANAFLEX4 MG PO (13:06)
[2022-09-15] MEDS ORDERED: NAPROSYN500 MG PO (13:06)
[2022-09-15] MEDS ORDERED: MEDROL DOSEPAK4 MG PO (13:06)
== END 2022-09-15 13:36 | disposition home or self-care (01) ==
LOC: ED 10:21
DX: S39.012A Strain of muscle, fascia and tendon of lower back, initial encounter (principal); I10 Essential (primary) hypertension; Z98.890 Other specified postprocedural states; F17.200 Nicotine dependence, unspecified, uncomplicated; X50.1XXA Overexertion from prolonged static or awkward postures, initial encounter; Y93.89 Activity, other specified; Y92.89 Other specified places as the place of occurrence of the external cause; Y99.8 Other external cause status

== ENCOUNTER 2022-10-21 10:43 | Emergency (ER) | payer BC ==
[~2022-10-21] VITALS: Ht 167.6 cm; Wt 77.1 kg
[~2022-10-21 10:43] MED LIST changes: +ZANAFLEX4 MG PO
[2022-10-21 10:53] VITALS: BP 101/64
[2022-10-21] MEDS ORDERED: ONDANSETRON4 MG SL (11:10)
== END 2022-10-21 11:52 | disposition home or self-care (01) ==
LOC: ED 10:43
DX: R11.2 Nausea with vomiting, unspecified (principal); I10 Essential (primary) hypertension; Z98.890 Other specified postprocedural states; F17.200 Nicotine dependence, unspecified, uncomplicated

== ENCOUNTER 2022-11-11 10:14 | Emergency (ER) | payer BC ==
[~2022-11-11] VITALS: Wt 74.8 kg
[2022-11-11 10:27] VITALS: BP 132/88
[2022-11-11] MEDS ORDERED: ONDANSETRON4 MG SL (11:18)
== END 2022-11-11 11:32 | disposition home or self-care (01) ==
LOC: ED 10:14
DX: R11.2 Nausea with vomiting, unspecified (principal); I10 Essential (primary) hypertension; Z98.890 Other specified postprocedural states; F17.200 Nicotine dependence, unspecified, uncomplicated

== ENCOUNTER 2022-11-21 11:02 | Emergency (ER) | payer BC ==
[~2022-11-21] VITALS: Ht 167.6 cm; Wt 83.9 kg
[2022-11-21 11:10] VITALS: BP 153/78
[2022-11-21] MEDS ORDERED: LISINOPRIL10 M1 PO (11:10)
[2022-11-21] MEDS ORDERED: CYCLOBENZAPRINE5 M3 PO (11:26)
[2022-11-21] MEDS ORDERED: TRAMADOL HCL50 MG PO (11:26)
[2022-11-24] MEDS ORDERED: ZESTRIL20 MG PO (17:19)
== END 2022-11-21 12:02 | disposition home or self-care (01) ==
LOC: ED 11:02
DX: M54.50 Low back pain, unspecified (principal); I10 Essential (primary) hypertension; Z98.890 Other specified postprocedural states; F17.200 Nicotine dependence, unspecified, uncomplicated

== ENCOUNTER 2022-12-18 13:38 | Emergency (ER) | payer BC ==
[~2022-12-18] VITALS: Ht 182.8 cm; Wt 74.8 kg
[~2022-12-18 13:38] MED LIST changes: +LISINOPRIL10 M1 PO; +TRAMADOL HCL50 MG PO; +ZESTRIL20 MG PO
[2022-12-18 13:48] VITALS: BP 136/97
[2022-12-18] MEDS ORDERED: TRAMADOL HCL50 MG PO (14:55)
[2022-12-18] MEDS ORDERED: CYCLOBENZAPRINE5 M3 PO (14:55)
== END 2022-12-18 14:57 | disposition home or self-care (01) ==
LOC: ED 13:38
DX: S39.012A Strain of muscle, fascia and tendon of lower back, initial encounter (principal); F17.200 Nicotine dependence, unspecified, uncomplicated; Z79.899 Other long term (current) drug therapy; Z98.890 Other specified postprocedural states; Z98.84 Bariatric surgery status; X50.0XXA Overexertion from strenuous movement or load, initial encounter; Y93.89 Activity, other specified; Y92.89 Other specified places as the place of occurrence of the external cause; Y99.0 Civilian activity done for income or pay

== ENCOUNTER 2023-01-22 09:44 | Emergency (ER) | payer BC ==
[~2023-01-22] VITALS: Ht 167.6 cm; Wt 74.8 kg
[2023-01-22 10:18] VITALS: BP 159/83
[2023-01-22] MEDS ORDERED: TRIAMCINOLONE430 GM TD (10:34)
[2023-01-22] MEDS ORDERED: PREDNISONE20 M1 PO (10:34)
== END 2023-01-22 10:41 | disposition home or self-care (01) ==
LOC: ED 09:44
DX: M79.89 Other specified soft tissue disorders (principal); L24.9 Irritant contact dermatitis, unspecified cause; J44.9 Chronic obstructive pulmonary disease, unspecified; I10 Essential (primary) hypertension; Z98.890 Other specified postprocedural states; F17.200 Nicotine dependence, unspecified, uncomplicated

== ENCOUNTER 2023-02-03 06:21 | Emergency (ER) | payer BC ==
[~2023-02-03] VITALS: Ht 167.6 cm; Wt 6.8 kg
[~2023-02-03 06:21] MED LIST changes: +TRIAMCINOLONE430 GM TD
[2023-02-03] MEDS ORDERED: LISINOPRIL20 MG PO (06:29)
[2023-02-03 06:53] LABS: BASO % 0.5 % (0.0-1.0); EOS # 0.2 10*3/uL (0.0-0.4); EOS % 2.3 % (1.0-4.0); HEMATOCRIT 43.2 % (42.0-52.0); LYMPH # 1.6 10*3/uL (1.3-4.4); LYMPH % 21.3 % (27.0-41.0); MEAN CELL VOLUME 97.1 fl (80.0-94.0); MEAN CORPUSCULAR HGB 31.5 pg (27.0-31.0); MEAN CORPUSCULAR HGB CONC 32.4 g/dl (33.0-37.0); MEAN PLATELET VOLUME 9.4 fl (9.6-12.3); MONO # 0.6 10*3/uL (0.1-1.0); MONO % 8.2 % (3.0-9.0); NEUT # 4.9 10*3/uL (2.3-7.9); NEUT % 67.4 % (47.0-73.0); PLATELET COUNT AUTOMATED 264 10*3/uL (130-400); RED BLOOD COUNT 4.45 10*6/uL (4.50-5.90); RED CELL DISTRI WIDTH 13.6 % (0-14.5); WHITE BLOOD COUNT 7.3 10*3/uL (4.8-10.8)
[2023-02-03 07:04] LABS: ACT PARTIAL THROMBO TIME 32.5 SECONDS (20.0-32.1)
[2023-02-03 07:15] LABS: ALKALINE PHOSPHATASE 105 U/L (46-116); BUN 19 mg/dl (9-23); CHLORIDE 109 mmol/L (98-107); LIPASE 37 U/L (12-53); POTASSIUM 4.3 mmol/L (3.4-5.1); SGPT/ALT 10 U/L (10-49); TOTAL PROTEIN 6.6 gm/dL (6.0-8.0)
[2023-02-03 08:07] VITALS: BP 120/82
[2023-02-03] MEDS ORDERED: ZESTRIL20 MG PO (08:43)
== END 2023-02-03 09:06 | disposition home or self-care (01) ==
LOC: ED 06:21
PROVIDERS: Internal Medicine
DX: I10 Essential (primary) hypertension (principal); R42 Dizziness and giddiness; F17.200 Nicotine dependence, unspecified, uncomplicated; Z79.899 Other long term (current) drug therapy; Z98.890 Other specified postprocedural states; Z79.82 Long term (current) use of aspirin

== ENCOUNTER 2023-02-08 17:48 | Emergency (ER) | payer BC ==
[~2023-02-08] VITALS: Ht 167.6 cm; Wt 74.8 kg
[~2023-02-08 17:48] MED LIST changes: +LISINOPRIL20 MG PO
[2023-02-08 19:51] LABS: BASO # 0.1 10*3/uL (0.0-0.1); BASO % 0.7 % (0.0-1.0); EOS # 0.3 10*3/uL (0.0-0.4); EOS % 3.6 % (1.0-4.0); HEMATOCRIT 43.8 % (42.0-52.0); LYMPH # 1.9 10*3/uL (1.3-4.4); LYMPH % 25.4 % (27.0-41.0); MEAN CELL VOLUME 96.7 fl (80.0-94.0); MEAN CORPUSCULAR HGB 31.8 pg (27.0-31.0); MEAN CORPUSCULAR HGB CONC 32.9 g/dl (33.0-37.0); MEAN PLATELET VOLUME 9.7 fl (9.6-12.3); MONO # 0.4 10*3/uL (0.1-1.0); MONO % 5.7 % (3.0-9.0); NEUT # 4.8 10*3/uL (2.3-7.9); NEUT % 64.3 % (47.0-73.0); PLATELET COUNT AUTOMATED 281 10*3/uL (130-400); RED BLOOD COUNT 4.53 10*6/uL (4.50-5.90); RED CELL DISTRI WIDTH 13.7 % (0-14.5); WHITE BLOOD COUNT 7.4 10*3/uL (4.8-10.8)
[2023-02-08 20:02] LABS: ACT PARTIAL THROMBO TIME 31.4 SECONDS (20.0-32.1)
[2023-02-08 20:13] LABS: ALKALINE PHOSPHATASE 118 U/L (46-116); BUN 17 mg/dl (9-23); CHLORIDE 112 mmol/L (98-107); LIPASE 37 U/L (12-53); POTASSIUM 3.7 mmol/L (3.4-5.1); SGPT/ALT 10 U/L (10-49); TOTAL PROTEIN 6.7 gm/dL (6.0-8.0)
[2023-02-08 21:42] LABS: BILIRUBIN Negative (Negative); BLOOD Negative (Negative); CLARITY Clear (Clear); COLOR Yellow (Yellow); GLUCOSE Negative (Negative); KETONE Trace (Negative); LEUKO ESTERASE Negative (Negative); NITRITE Negative (Negative); PH 5.5 (4.5-8.0); SPECIFIC GRAVITY >= 1.030 (1.001-1.030)
[2023-02-08 21:57] LABS: BACTERIA TRACE; EPITHELIAL CELLS 0-2; MUCOUS 2+
[2023-02-08] MEDS ORDERED: PREDNISONE10 M1 PO (22:45)
[2023-02-08 22:46] VITALS: BP 123/77
== END 2023-02-08 22:47 | disposition home or self-care (01) ==
LOC: ED 17:48
PROVIDERS: Internal Medicine
DX: R06.02 Shortness of breath (principal); M79.89 Other specified soft tissue disorders; R11.0 Nausea; T46.4X5A Adverse effect of angiotensin-converting-enzyme inhibitors, initial encounter; I10 Essential (primary) hypertension; Z98.890 Other specified postprocedural states; F17.200 Nicotine dependence, unspecified, uncomplicated; Y92.89 Other specified places as the place of occurrence of the external cause

== ENCOUNTER 2023-02-18 12:12 | Emergency (ER) | payer BC ==
[~2023-02-18] VITALS: Ht 167.6 cm; Wt 74.8 kg
[~2023-02-18 12:12] MED LIST changes: +PREDNISONE10 M1 PO
[2023-02-18 13:01] VITALS: BP 142/94
[2023-02-18] MEDS ORDERED: ONDANSETRON HYDR4 M1 PO (15:10)
== END 2023-02-18 15:30 | disposition home or self-care (01) ==
LOC: ED 12:12
DX: R11.10 Vomiting, unspecified (principal); F17.200 Nicotine dependence, unspecified, uncomplicated; Z98.890 Other specified postprocedural states; Z98.84 Bariatric surgery status

== ENCOUNTER 2023-03-03 13:02 | Emergency (ER) | payer BC ==
[~2023-03-03] VITALS: Ht 167.6 cm; Wt 77.1 kg
[2023-03-03 13:15] VITALS: BP 133/89
[2023-03-03] MEDS ORDERED: CYCLOBENZAPRINE5 M3 PO (13:59)
== END 2023-03-03 14:07 | disposition home or self-care (01) ==
LOC: ED 13:02
DX: M54.50 Low back pain, unspecified (principal); G89.29 Other chronic pain; Z98.890 Other specified postprocedural states; F17.200 Nicotine dependence, unspecified, uncomplicated

== ENCOUNTER 2023-07-01 12:34 | Emergency (ER) | payer OTHER ==
[~2023-07-01] VITALS: Ht 167.6 cm; Wt 79.4 kg
[2023-07-01 12:49] VITALS: BP 157/86
[2023-07-01] MEDS ORDERED: HYDROCODONE-AC1 EAC1 PO (14:24)
== END 2023-07-01 14:31 | disposition home or self-care (01) ==
LOC: ED 12:34
DX: S62.111A Displaced fracture of triquetrum [cuneiform] bone, right wrist, initial encounter for closed fracture (principal); S20.211A Contusion of right front wall of thorax, initial encounter; I10 Essential (primary) hypertension; Z98.890 Other specified postprocedural states; F17.200 Nicotine dependence, unspecified, uncomplicated; W01.198A Fall on same level from slipping, tripping and stumbling with subsequent striking against other object, initial encounter; Y93.89 Activity, other specified; Y92.002 Bathroom of unspecified non-institutional (private) residence as the place of occurrence of the external cause; Y99.8 Other external cause status

== ENCOUNTER 2023-09-04 11:09 | Emergency (ER) | payer OTHER ==
[~2023-09-04] VITALS: Ht 167.6 cm; Wt 79.4 kg
[~2023-09-04 11:09] MED LIST changes: +HYDROCODONE-AC1 EAC1 PO
[2023-09-04 11:14] VITALS: BP 148/85
[2023-09-04] MEDS ORDERED: AMLODIPINE BESY10 MG PO (11:15)
[2023-09-04] MEDS ORDERED: SODIUM CHLORIDE 0.9% 1,000 ML IV ONE (11:25)
[2023-09-04 11:37] LABS: BASO # 0.1 10*3/uL (0.0-0.1); BASO % 0.8 % (0.0-1.0); EOS # 0.3 10*3/uL (0.0-0.4); EOS % 3.9 % (1.0-4.0); HEMATOCRIT 46.7 % (42.0-52.0); LYMPH # 1.4 10*3/uL (1.3-4.4); LYMPH % 19.5 % (27.0-41.0); MEAN CELL VOLUME 95.1 fl (80.0-94.0); MEAN CORPUSCULAR HGB 30.5 pg (27.0-31.0); MEAN CORPUSCULAR HGB CONC 32.1 g/dl (33.0-37.0); MEAN PLATELET VOLUME 9.3 fl (9.6-12.3); MONO # 0.5 10*3/uL (0.1-1.0); NEUT # 4.9 10*3/uL (2.3-7.9); NEUT % 68.5 % (47.0-73.0); PLATELET COUNT AUTOMATED 292 10*3/uL (130-400); RED BLOOD COUNT 4.91 10*6/uL (4.50-5.90); RED CELL DISTRI WIDTH 14.3 % (0-14.5); WHITE BLOOD COUNT 7.1 10*3/uL (4.8-10.8)
[2023-09-04 12:07] LABS: ALKALINE PHOSPHATASE 127 U/L (46-116); BUN 15 mg/dl (9-23); CHLORIDE 107 mmol/L (98-107); LIPASE 38 U/L (12-53); SGPT/ALT 13 U/L (5-49)
[2023-09-04] MEDS ORDERED: ONDANSETRON4 MG SL (12:35)
== END 2023-09-04 12:43 | disposition home or self-care (01) ==
LOC: ED 11:09
PROVIDERS: Physician Assistant Medical
DX: R11.2 Nausea with vomiting, unspecified (principal); I10 Essential (primary) hypertension; Z98.890 Other specified postprocedural states; F17.210 Nicotine dependence, cigarettes, uncomplicated

== ENCOUNTER 2024-01-25 21:29 | Emergency (ER) | payer OTHER ==
[~2024-01-25] VITALS: Ht 167.6 cm; Wt 79.4 kg
[~2024-01-25 21:29] MED LIST changes: +AMLODIPINE BESY10 MG PO
[2024-01-25 21:43] VITALS: BP 149/81
[2024-01-25] MEDS ORDERED: Ondansetron Hydrochloride 4 MG TAB SL ONE (21:50)
[2024-01-25] MEDS ORDERED: Ondansetron4 MG PO (21:52)
== END 2024-01-25 22:01 | disposition home or self-care (01) ==
LOC: ED 21:29
DX: K52.9 Noninfective gastroenteritis and colitis, unspecified (principal); R11.2 Nausea with vomiting, unspecified; R53.83 Other fatigue; I10 Essential (primary) hypertension; F17.200 Nicotine dependence, unspecified, uncomplicated; Z98.890 Other specified postprocedural states

== ENCOUNTER 2024-02-24 01:45 | Emergency (ER) | payer OTHER ==
[~2024-02-24] VITALS: Ht 167.6 cm; Wt 79.4 kg
[~2024-02-24 01:45] MED LIST changes: +Ondansetron4 MG PO
[2024-02-24 02:03] LABS: BASO # 0.1 10*3/uL (0.0-0.1); BASO % 0.7 % (0.0-1.0); EOS # 0.2 10*3/uL (0.0-0.4); EOS % 2.3 % (1.0-4.0); LYMPH # 1.4 10*3/uL (1.3-4.4); LYMPH % 19.2 % (27.0-41.0); MEAN CELL VOLUME 96.8 fl (80.0-94.0); MEAN CORPUSCULAR HGB 31.1 pg (27.0-31.0); MEAN CORPUSCULAR HGB CONC 32.1 g/dl (33.0-37.0); MEAN PLATELET VOLUME 9.3 fl (9.6-12.3); MONO # 0.7 10*3/uL (0.1-1.0); MONO % 9.7 % (3.0-9.0); NEUT # 5.1 10*3/uL (2.3-7.9); NEUT % 67.8 % (47.0-73.0); PLATELET COUNT AUTOMATED 264 10*3/uL (130-400); RED BLOOD COUNT 4.34 10*6/uL (4.50-5.90); RED CELL DISTRI WIDTH 14.7 % (0-14.5); WHITE BLOOD COUNT 7.5 10*3/uL (4.8-10.8)
[2024-02-24 02:39] LABS: ALKALINE PHOSPHATASE 122 U/L (46-116); BUN 17 mg/dl (9-23); CHLORIDE 104 mmol/L (98-107); POTASSIUM 4.3 mmol/L (3.4-5.1); SGPT/ALT 18 U/L (5-49); TOTAL PROTEIN 6.8 gm/dL (6.0-8.0)
[2024-02-24 04:07] VITALS: BP 143/90
== END 2024-02-24 04:25 | disposition home or self-care (01) ==
LOC: ED 01:45
PROVIDERS: Internal Medicine
DX: R07.89 Other chest pain (principal); D75.89 Other specified diseases of blood and blood-forming organs; I10 Essential (primary) hypertension; F17.200 Nicotine dependence, unspecified, uncomplicated; Z98.890 Other specified postprocedural states

== ENCOUNTER 2024-08-25 19:56 | Emergency (ER) | payer OTHER ==
[~2024-08-25] VITALS: Ht 167.6 cm; Wt 79.4 kg
[2024-08-25 20:00] VITALS: BP 148/84
[2024-08-25] MEDS ORDERED: Ondansetron4 MG PO (20:28)
== END 2024-08-25 20:29 | disposition home or self-care (01) ==
LOC: ED 19:56
DX: R11.2 Nausea with vomiting, unspecified (principal); I10 Essential (primary) hypertension; J44.9 Chronic obstructive pulmonary disease, unspecified; F17.200 Nicotine dependence, unspecified, uncomplicated; Z79.899 Other long term (current) drug therapy; Z98.890 Other specified postprocedural states; Z98.84 Bariatric surgery status

== ENCOUNTER 2024-10-14 16:13 | Emergency (ER) | payer OTHER ==
[~2024-10-14] VITALS: Ht 167.6 cm; Wt 74.4 kg
[2024-10-14 16:59] VITALS: BP 172/96
[2024-10-14] MEDS ORDERED: SODIUM CHLORIDE 0.9% 1,000 ML IV ONE (17:10)
[2024-10-14] MEDS ORDERED: Meclizine Hydrochloride 25 MG TAB PO ONE (17:10)
[2024-10-14 17:26] LABS: BASO # 0.1 10*3/uL (0.0-0.1); BASO % 0.9 % (0.0-1.0); EOS # 0.1 10*3/uL (0.0-0.4); EOS % 0.9 % (1.0-4.0); HEMATOCRIT 44.1 % (42.0-52.0); MEAN CELL VOLUME 92.3 fl (80.0-94.0); MEAN CORPUSCULAR HGB 31.2 pg (27.0-31.0); MEAN CORPUSCULAR HGB CONC 33.8 g/dl (33.0-37.0); MEAN PLATELET VOLUME 9.3 fl (9.6-12.3); MONO # 0.6 10*3/uL (0.1-1.0); MONO % 7.6 % (3.0-9.0); NEUT # 5.6 10*3/uL (2.3-7.9); NEUT % 70.8 % (47.0-73.0); PLATELET COUNT AUTOMATED 273 10*3/uL (130-400); RED BLOOD COUNT 4.78 10*6/uL (4.50-5.90); RED CELL DISTRI WIDTH 14.3 % (0-14.5); WHITE BLOOD COUNT 7.9 10*3/uL (4.8-10.8)
[2024-10-14 17:45] LABS: BUN 17 mg/dl (9-23); CHLORIDE 104 mmol/L (98-107); POTASSIUM 3.5 mmol/L (3.4-5.1)
== END 2024-10-14 17:59 | disposition home or self-care (01) ==
LOC: ED 16:13
PROVIDERS: Emergency Medicine
DX: R42 Dizziness and giddiness (principal); J44.9 Chronic obstructive pulmonary disease, unspecified; I10 Essential (primary) hypertension; E78.5 Hyperlipidemia, unspecified; F17.200 Nicotine dependence, unspecified, uncomplicated; Z79.899 Other long term (current) drug therapy; Z98.890 Other specified postprocedural states; Z98.84 Bariatric surgery status

== ENCOUNTER 2025-02-22 02:53 | Emergency (ER) | payer OTHER ==
[~2025-02-22] VITALS: Ht 167.6 cm; Wt 74.8 kg
[2025-02-22 03:07] VITALS: BP 158/80
[2025-02-22] MEDS ORDERED: METHOCARBAMOL 500 MG TAB PO ONE (03:20)
[2025-02-22] MEDS ORDERED: METHOCARBAMOL500 M1 PO (03:23)
[2025-02-22] MEDS ORDERED: NAPROXEN250 MG PO (03:23)
== END 2025-02-22 04:05 | disposition home or self-care (01) ==
LOC: ED 02:53
DX: S29.012A Strain of muscle and tendon of back wall of thorax, initial encounter (principal); F17.200 Nicotine dependence, unspecified, uncomplicated; Z79.899 Other long term (current) drug therapy; Z98.890 Other specified postprocedural states; X50.1XXA Overexertion from prolonged static or awkward postures, initial encounter; Y93.89 Activity, other specified; Y92.89 Other specified places as the place of occurrence of the external cause; Y99.8 Other external cause status

== ENCOUNTER 2025-04-16 20:42 | Emergency (ER) | payer OTHER ==
[~2025-04-16] VITALS: Wt 74.8 kg
[~2025-04-16 20:42] MED LIST changes: +NAPROXEN250 MG PO
[2025-04-16 21:10] VITALS: BP 134/68
[2025-04-16] MEDS ORDERED: METHOCARBAMOL 500 MG TAB PO ONE (21:20)
[2025-04-16] MEDS ORDERED: NAPROXEN250 MG PO (21:43)
[2025-04-16] MEDS ORDERED: METHOCARBAMOL500 M1 PO (21:43)
== END 2025-04-16 21:44 | disposition home or self-care (01) ==
LOC: ED 20:42
DX: M62.830 Muscle spasm of back (principal); M54.50 Low back pain, unspecified; G89.29 Other chronic pain; F17.200 Nicotine dependence, unspecified, uncomplicated; Z79.899 Other long term (current) drug therapy; Z98.890 Other specified postprocedural states